=== PATIENT | male | born 1985 | race Caucasian/White ===

== ENCOUNTER 2017-03-18 14:12 | Emergency (ER) | payer OTHER ==
[2017-03-18 14:19] VITALS: BP 116/69
[2017-03-18] MEDS ORDERED: DEXAMETHASONE 10 MG/ML VIAL PO STA (14:31)
--- NOTE | 2017-03-18 14:33 | ED Physician Documentation ---
History of Present Illness - Stated complaint Stated Complaint: THROAT PAIN - Chief complaint Chief Complaint: Heent - History obtained from History obtained from: Patient - History of Present Illness Timing: How many days ago (2) Pain level max: 7 Pain level now: 6 - Additonal information Additional information: Patient is a 32-year-old male who presents to the emergency department with a sore throat for the past 2 days, felt feverish today. States has had strep in the past and feels similar. No coughing. No rhinorrhea or congestion. Better with rest, worse with swallowing Review of Systems Constitutional: denies: Myalgias Ears: denies: Ear pain Nose: denies: Rhinorrhea / runny nose, Congestion Respiratory: denies: Cough GI: denies: Abdominal Pain, Nausea, Vomiting, Diarrhea PD PAST MEDICAL HISTORY - Past Medical History Past Medical History: No - Past Surgical History Past Surgical History: Yes Ortho: Knee replacement - Present Medications Home Medications: Ambulatory Orders Medication Instructions Recorded Confirmed Ibuprofen [Motrin] 800 mg PO Q8H PRN #30 tablet 03/18/17 Penicillin V Potassium 500 mg PO Q6HR #40 tablet 03/18/17 - Allergies Allergies/Adverse Reactions: Allergies Allergy/AdvReac Type Severity Reaction Status Date / Time No Known Drug Allergies Allergy Verified 03/18/17 14:18 - Social History Does the pt smoke?: Yes Smoking Status: Current every day smoker Does the pt drink ETOH?: Yes Does the pt have substance abuse?: No - Immunizations Immunizations are current?: Yes PD ED PE NORMAL - Vitals Vital signs reviewed: Yes - General General: Alert and oriented X 3, No acute distress - HEENT HEENT: PERRL, Ears normal, Moist mucous membranes, Other (Posterior oropharynx is erythematous, tonsils are swollen bilaterally with white exudate. Uvula midline. No evidence of peritonsillar abscess. No trismus. Normal voice) - Neck Neck: Supple, no meningeal sign, Other (Shotty anterior lymphadenopathy) - Cardiac Cardiac: RRR - Respiratory Respiratory: No respiratory distress, Clear bilaterally - Derm Derm: Warm and dry - Neuro Neuro: Alert and oriented X 3 Results - Vitals Vitals: Vital Signs - 24 hr 03/18/17 14:16 Temperature 36.9 C Heart Rate 98 Respiratory 18 Rate Blood Pressure 116/69 O2 Saturation 97 Oxygen O2 Source Room air PD MEDICAL DECISION MAKING - ED course Complexity details: considered differential, d/w patient ED course: Patient is a 32-year-old male who presents to the emergency department what appears to be strep pharyngitis. He is well-appearing, nontoxic. Tolerating p.o. without difficulty. No evidence of peritonsillar abscess or retropharyngeal abscess. Given dexamethasone here will place on antibiotics for home and follow-up with his doctor. Patient counseled regarding signs and symptoms for which I believe and urgent re-evaluation would be necessary. Patient with good understanding of and agreement to plan and is comfortable going home at this time This document was made in part using voice recognition software. While efforts are made to proofread this document, sound alike and grammatical errors may occur. Departure - Departure Disposition: 01 Home, Self Care Clinical Impression: Strep pharyngitis Condition: Good Instructions: ED Strep Pharyngitis Conf Follow-Up: your,doctor in 1 week if not better [Other] Prescriptions: Penicillin V Potassium 500 mg PO Q6HR #40 tablet Ibuprofen [Motrin] 800 mg PO Q8H PRN #30 tablet PRN Reason: PAIN &/OR FEVER Comments: Return if you worsen. Take all antibiotics until gone.
== END 2017-03-18 14:40 | disposition home or self-care (01) ==
LOC: ED 14:12
DX: J02.0 Streptococcal pharyngitis (principal); F17.200 Nicotine dependence, unspecified, uncomplicated
CPT/HCPCS: 87430; 99283

== ENCOUNTER 2018-06-26 18:01 | Outpatient (CLI) | payer OTHER ==
--- NOTE | 2018-06-27 15:29 | XRAY Report ---
Reason: SPRAIN OF UNSPECIFIED SITE OF RIGHT KNEE,INITIAL E Procedure Date: 06/26/2018 Accession Number: [id number] / [id number] Procedure: XR - Knee 3 View RT CPT Code: FULL RESULT: EXAM: RIGHT KNEE RADIOGRAPHY EXAM DATE: 06/26/2018 06:12 PM. CLINICAL HISTORY: Right knee pain after twist and fall one month ago. COMPARISON: None. TECHNIQUE: 3 views. FINDINGS: Bones: Round lucencies with sclerotic margins in the patella and distal femoral diaphysis, as seen on the lateral view, possibly sequela of prior instrumentation. Small corticated osseous density medial to the patella on the patellofemoral view representing an unfused ossicle versus sequela of remote trauma. No acute fracture. Joints: Normal alignment. Joint spaces are maintained. No effusion. Soft Tissues: Unremarkable. IMPRESSION: 1. Possible abandoned hardware tracks in the patella and distal femur; please correlate with patient's clinical history. 2. No acute bony abnormality. RADIA
== END 2018-06-26 18:02 | disposition home or self-care (01) ==
LOC: DI 18:01
PROVIDERS: ATTEND Internal Medicine
DX: S83.91XA Sprain of unspecified site of right knee, initial encounter (principal)

== ENCOUNTER 2019-04-22 07:49 | Outpatient (CLI) | payer OTHER ==
[2019-04-22 11:05] LABS: ALBUMIN 4.5 g/dL (3.2-5.5); ALBUMIN/GLOBULIN RATIO 1.7 (1.0-2.2); ALKALINE PHOSPHATASE 47 IU/L (42-121); ALT ALANINE AMINOTRANSFERASE 21 IU/L (10-60); AST ASPARTATE AMINOTRANSFERASE 23 IU/L (10-42); BILIRUBIN,TOTAL 0.6 mg/dL (0.2-1.0); BUN - BLOOD UREA NITROGEN 16 mg/dL (6-20); CALCIUM 8.9 mg/dL (8.5-10.3); CARBON DIOXIDE - CO2 26 mmol/L (21-32); CHLORIDE 104 mmol/L (101-111); CHOLESTEROL 206 mg/dL; CREATININE 0.9 mg/dL (0.6-1.2); GFR - MDRD 96 (>89); GLUCOSE 103 mg/dL (70-100); HDL CHOLESTEROL 52 mg/dL; LDL CHOLESTEROL,CALCULATED 135 mg/dL; LDL/HDL RATIO 2.6 (<3.6); SODIUM 137 mmol/L (135-145); TOTAL PROTEIN 7.2 g/dL (6.7-8.2); VLDL CHOLESTEROL 19 mg/dL
== END 2019-04-22 07:50 | disposition home or self-care (01) ==
LOC: LAB.S 07:49
PROVIDERS: ATTEND Internal Medicine
DX: Z00.00 Encounter for general adult medical examination without abnormal findings (principal); Z80.8 Family history of malignant neoplasm of other organs or systems
CPT/HCPCS: 36415; 80053; 80061; 81599; 83721; 88230; 88262

== ENCOUNTER 2022-09-26 12:04 | Emergency (ER) | payer OTHER ==
[2022-09-26 12:12] VITALS: BP 107/65; O2SAT 98
[2022-09-26] MEDS ORDERED: HYDROmorphone 1 MG/ML CARPUJECT IM STA (12:29)
--- NOTE | 2022-09-26 12:38 | XRAY Report ---
PROCEDURE: Ankle 3 View LT INDICATIONS: Trauma TECHNIQUE: 3 views of the ankle were acquired. COMPARISON: None. FINDINGS: Bones: Normal alignment. There is an ossification over the lateral aspect of the talus with moderat e overlying soft tissue swelling. Other osseous structures appear intact. Ankle mortise is normally a ligned. No suspicious bony lesions. Soft tissues: No tibiotalar joint effusion. Achilles tendon appears normal. IMPRESSION: Possible avulsion fracture fragment off the lateral margin of the talus. Recommend clinical correlati on for point tenderness in this region. Otherwise, moderate soft tissue swelling of the left ankle wi thout acute dislocation. Reviewed by: Anthony Warner MD on 09/26/2022 12:37 PM PDT Approved by: Anthony Warner MD on 09/26/2022 12:37 PM PDT Station ID: [id number]
[2022-09-26] MEDS ORDERED: oxyCODONE 5 MG TABLET PO STA (12:41)
--- NOTE | 2022-09-26 12:41 | XRAY Report ---
PROCEDURE: Foot 3 View LT INDICATIONS: Trauma TECHNIQUE: 3 views of the foot were acquired. COMPARISON: None. FINDINGS: Bones: Displaced, oblique fracture involving the distal left fifth metatarsal. Overlying soft tissue edema. Other osseous structures appear intact. Soft tissues: No suspicious soft tissue calcifications or masses. IMPRESSION: Mildly displaced oblique fracture of the distal left fifth metatarsal shaft. Reviewed by: Anthony Warner MD on 09/26/2022 12:40 PM PDT Approved by: Anthony Warner MD on 09/26/2022 12:40 PM PDT Station ID: [id number]
--- NOTE | 2022-09-26 12:48 | ED Physician Documentation ---
PD HPI LOWER EXT INJURY - Stated complaint Stated Complaint: LT FOOT PX,SWELLING - Chief complaint Chief Complaint: Trauma Ext - History obtained from History obtained from: Patient - History of Present Illness PD HPI LOW EXT INJURY LOCATION: Left, Ankle, Foot - Additional information Additional information: 37-year-old male presents with left foot and ankle pain after jumping over a fence chasing a dog and landing awkwardly onto his left foot. He has pain and swelling at the base of the left fifth metatarsal and also in the left ankle. He tried to walk on it prior to arrival and it is extremely uncomfortable. He denies any other injuries in the fall. PD PAST MEDICAL HISTORY - Past Medical History Past Medical History: Yes Cardiovascular: None Respiratory: Sleep apnea, CPAP use Neuro: None Endocrine/Autoimmune: None GI: None : None HEENT: None Psych: None Musculoskeletal: None Derm: None - Past Surgical History Past Surgical History: Yes Ortho: Arthroscopic surgery, Other - Present Medications Home Medications: Ambulatory Orders Medication Instructions Recorded Confirmed Ibuprofen [Motrin] 600 mg PO Q6H PRN #30 tab 09/26/22 Oxycodone HCl/Acetaminophen 1 - 2 each PO Q6H PRN #14 tablet 09/26/22 [Percocet 5-325 mg Tablet] - Allergies Allergies/Adverse Reactions: Allergies Allergy/AdvReac Type Severity Reaction Status Date / Time No Known Drug Allergies Allergy Verified 09/26/22 12:10 - Social History Does the pt smoke?: Yes Smoking Status: Current every day smoker Does the pt drink ETOH?: Yes ETOH Use: Beer Does the pt have substance abuse?: No - Immunizations Immunizations are current?: Yes PD ED PE NORMAL - Vitals Vital signs reviewed: Yes - General General: Alert and oriented X 3, No acute distress, Well developed/nourished - Derm Derm: Normal color, Warm and dry, No rash - Extremities Extremities: No edema, No calf tenderness / cord, Other (There is mild deformity and swelling with bruising along the lateral left foot w/ ttp at the 5th metatarsal, no other foot ttp. Mild ttp aroudn the left ATFL w/ mild swelling. No malleolar ttp or distal tib/fib ttp. ) - Neuro Neuro: Alert and oriented X 3 Eye Opening: Spontaneous Motor: Obeys Commands Verbal: Oriented GCS Score: 15 Results - Vitals Vitals: Vital Signs - 24 hr 08/07/23 12:10 Temperature 36.5 C Heart Rate 60 Respiratory 16 Rate Blood Pressure 107/65 O2 Saturation 98 Oxygen O2 Source Room air - Rads (name of study) No standard instances Relevant Findings:: Final report received PD Medical Decision Making - ED course Complexity details: reviewed results, re-evaluated patient, d/w patient, d/w family ED course: 37-year-old male presented with a left foot injury as described in HPI. We obtained an x-ray which shows a mildly displaced oblique fracture of the left fifth metatarsal shaft. There is also a possible chip fracture off the talus. The patient was informed of findings and I advised that we place him in a splint and that he be nonweightbearing, crutches provided. He was advised to keep elev ated whenever possible and utilize cool compress to help with pain and swelling. He should follow-up with orthopedic surgery or podiatry for follow-up of this fracture. I encouraged close follow-up given the location of the fracture. He was prescribed Percocet as well as ibuprofen for pain control. Departure - Departure Disposition: 01 Home, Self Care Clinical Impression: Fracture of 5th metatarsal Qualifiers: Encounter type: initial encounter Fracture type: closed Fracture alignment: displaced Laterality: left Qualified Code(s): S92.352A - Displaced fracture of fifth metatarsal bone, left foot, initial encounter for closed fracture Condition: Good Instructions: Fifth Metatarsal Fx Follow-Up: Khurram Clemens MD [Provider Admit Priv/Credential] - Osmany Boggs DPM [Physician No Access] - Prescriptions: Ibuprofen [Motrin] 600 mg PO Q6H PRN #30 tab PRN Reason: Pain Oxycodone HCl/Acetaminophen [Percocet 5-325 mg Tablet] 1 - 2 each PO Q6H PRN #14 tablet PRN Reason: pain Comments: Please follow-up with either podiatry or orthopedic surgery for your foot fracture. I have listed two specialist on your discharge documents. . You will need to be nonweightbearing on the left foot and you will need to utilize crutches at all times until you have followed up with podiatry or orthopedic surgery. As we discussed, this will need close follow-up due to the location and the potential for decreased blood flow and healing in this area. Keep the foot elevated whenever possible and use a cool compress to help with swelling. I have also prescribed ibuprofen and Percocet which you can use as needed for pain control. Percocet is a narcotic pain medication and should be used carefully, you should not drive, make important decisions, sign documents, or operate heavy machinery while using this medication and it carries with it a potential for oversedation if mixed with other drugs or alcohol, and addiction potential. Forms: PCP List
== END 2022-09-26 13:02 | disposition home or self-care (01) ==
LOC: ED 12:04
DX: S92.352A Displaced fracture of fifth metatarsal bone, left foot, initial encounter for closed fracture (principal); X50.1XXA Overexertion from prolonged static or awkward postures, initial encounter; Y93.39 Activity, other involving climbing, rappelling and jumping off; F17.200 Nicotine dependence, unspecified, uncomplicated
CPT/HCPCS: 73610; 73630; 99283; A9270; J1170

== ENCOUNTER 2022-10-03 08:00 | Outpatient (CLI) | payer OTHER ==
--- NOTE | 2022-10-03 13:42 | XRAY Report ---
PROCEDURE: Foot 3 View LT INDICATIONS: LEFT 5TH MT FRACTURE TECHNIQUE: 3 views of the foot were acquired. COMPARISON: 09/26/2022 FINDINGS: Bones: There is a moderately displaced comminuted oblique fracture of the distal fifth metacarpal, w hich is unchanged. Mild periareolar articular osteophyte formation at the first metatarsophalangeal j oint.. No suspicious bony lesions. Soft tissues: No suspicious soft tissue calcifications or masses. IMPRESSION: No significant change in alignment of fifth metacarpal fracture. Reviewed by: Regino Gerardo MD on 10/03/2022 1:41 PM PDT Approved by: Regino Gerardo MD on 10/03/2022 1:41 PM PDT Station ID: [id number]
--- NOTE | 2022-10-03 13:42 | XRAY Report ---
PROCEDURE: Ankle 3 View LT INDICATIONS: LEFT ANKLE PAIN TECHNIQUE: 3 views of the ankle were acquired. COMPARISON: None. FINDINGS: Bones: No fractures or dislocations. Ankle mortise is normally aligned. No suspicious bony lesions . Soft tissues: No tibiotalar joint effusion. Achilles tendon appears normal. IMPRESSION: No acute fracture. No osseous lesion. If symptoms and/or clinical suspicion for pathology continue, f urther assessment with repeat plain films, or advanced imaging (e.g., CT, MRI, or bone scan) is recom mended for further assessment. Reviewed by: Regino Gerardo MD on 10/03/2022 1:41 PM PDT Approved by: Regino Gerardo MD on 10/03/2022 1:41 PM PDT Station ID: [id number]
== END 2022-10-03 23:59 | disposition home or self-care (01) ==
LOC: DI.WOS 08:00
PROVIDERS: ATTEND Orthopaedic Surgery
DX: S92.192A Other fracture of left talus, initial encounter for closed fracture (principal); S62.307D Unspecified fracture of fifth metacarpal bone, left hand, subsequent encounter for fracture with routine healing

== ENCOUNTER 2022-12-05 08:00 | Outpatient (CLI) | payer OTHER ==
--- NOTE | 2022-12-05 11:29 | XRAY Report ---
PROCEDURE: Ankle 3 View LT INDICATIONS: left talus fracture TECHNIQUE: 3 views of the ankle were acquired. COMPARISON: Left ankle x-rays 10/03/2022, 09/26/2022. FINDINGS: Bones: Redemonstration of a small avulsion fracture along the left lateral aspect of the talus. Ankl e mortise is normally aligned. No suspicious bony lesions. Soft tissues: No tibiotalar joint effusion. Achilles tendon appears normal. IMPRESSION: Redemonstration of small avulsion fracture along the lateral aspect of the talus. Reviewed by: Spike Rios MD on 12/05/2022 11:27 AM PDT Approved by: Spike Rios MD on 12/05/2022 11:27 AM PDT Station ID: [id number]
--- NOTE | 2022-12-05 12:42 | XRAY Report ---
PROCEDURE: Foot 3 View LT INDICATIONS: left 5th mt fracture TECHNIQUE: 3 views of the foot were acquired. COMPARISON: October 03, 2022, September 26, 2022. FINDINGS: Bones: There is a nonunionized fracture of the distal fifth metatarsal shaft. Soft tissues: No suspicious soft tissue calcifications or masses. IMPRESSION: Nonunited fracture of the distal fifth metatarsal. Reviewed by: Waldemar Lucio on 12/05/2022 12:41 PM PDT Approved by: Waldemar Lucio on 12/05/2022 12:41 PM PDT Station ID: [id number]
== END 2022-12-05 23:59 | disposition home or self-care (01) ==
LOC: DI.WOS 08:00
PROVIDERS: ATTEND Orthopaedic Surgery
DX: S92.192D Other fracture of left talus, subsequent encounter for fracture with routine healing (principal); S92.352K Displaced fracture of fifth metatarsal bone, left foot, subsequent encounter for fracture with nonunion